=== PATIENT | male | born 1965 | race Caucasian/White ===

== ENCOUNTER → 2019-02-03 15:50 | Outpatient (CLI) | payer OTHER, SELFPAY ==
[2019-02-03 17:44] LABS: AST(SGOT) 20 U/L (15-37); Alanine Aminotransfer ALT/SGPT 37 U/L (16-61); Albumin, Serum 3.6 g/dL (3.2-5.0); Alkaline Phosphatase 106 U/L (45-117); Anion Gap 7 (5-15); BUN 16 mg/dL (7-18); BUN/Creat Ratio 19.5 RATIO (10-20); Calcium,Total 8.6 mg/dL (8.5-10.1); Chloride 103 mmol/L (98-107); Creatinine, Serum 0.82 mg/dL (0.70-1.30); EST Glomerular Filtration Rate 104 mL/min (>60); Est Glom Filt Rate - Afr Amer 126 mL/min (>60); Globulin 3.7 g/dL (2.2-4.2); Glucose 108 mg/dL (74-106); Potassium 3.8 mmol/L (3.5-5.1); Protein, Total 7.3 g/dL (6.4-8.2); Sodium Level 137 mmol/L (136-145); T4 Free Direct 0.94 ng/dL (0.76-1.46); Thyroid Stim Hormone (TSH) 1.21 uIU/mL (0.358-3.74)
[2019-02-03 17:58] LABS: Absolute Lymphocyte Count 2.29 X10^3/uL (0.83-4.51); Absolute Neutrophil Count 3.8 X10^3/uL (2.0-7.7); Basophil# 0.07 X10^3/uL; Eosinophils% 4.3 % (0-5); Hemoglobin 12.4 g/dL (13.0-16.5); Lymphocyte # 2.29 X10^3/ul (4.0); Lymphocyte % 32.8 % (19-41); Mean Corp Hgb Conc 33.5 g/dL (32-36); Mean Corpuscular Hgb 28.5 pg (27.0-32.0); Mean Corpuscular Volume 85.1 fL (80-94); Mean Platelet Vol. 10.9 fl (6.2-12.0); Monocyte# 0.51 X10^3/uL; Monocyte% 7.3 % (0-10); NRBC Flagged by Analyzer 0 % (0-5); Neutrophil % 54.3 % (47-70); Platelet Count 232 K/mm3 (150-450); RBC Distribution Width CV 13.7 % (11.6-14.6); RBC Distribution Width SD 42.4 fl (35.1-43.9); Red Blood Count 4.35 M/mm3 (4.6-6.2)
[2019-02-04 15:39] LABS: Ferritin 173 ng/mL (26-388); Iron 59 ug/dL (65-175); Iron Binding Capacity,Total 274 ug/dL (250-450); PERCENT IRON SATURATION 21.5 % (15.0-55.0)
== END ==
PROVIDERS: Family Provider Family Medicine; PCP Family Medicine; Visit Provider Family Medicine
DX: I10 Essential (primary) hypertension (principal); F41.9 Anxiety disorder, unspecified; D64.9 Anemia, unspecified
CPT/HCPCS: 36415; 80053; 82728; 83540; 83550; 84439; 84443; 85025

== ENCOUNTER 2019-03-21 06:50 | Day surgery (SDC) | payer OTHER, SELFPAY ==
[2019-02-24 08:24] VITALS: BMI 40.3
--- NOTE | 2019-02-25 08:48 | HP_ITS ---
Intake Vital Signs 02/24/19 Height 6 ft 5 in 02/24/19 Weight: 340 lb 02/24/19 BMI 40.3 02/24/19 BP 139/92 H 02/24/19 Blood Pressure Location Rt brachial Intake Visit Reasons: CHANGE IN BOWEL HABITS, DIARRHEA & ANEMIA Primary Special Educator Required: No Is patient in pain?: No Allergies No Known Allergies Allergy (Unverified 02/24/19 08:24) Medications bupropion HCl 150 mg tablet,12 hr sustained-release 150 mg PO DAILY 02/24/19 [History Confirmed 02/24/19] cetirizine 10 mg tablet 10 mg PO DAILY 02/24/19 [History Confirmed 02/24/19] lisinopril 20 mg-hydrochlorothiazide 25 mg tablet PO #30 tab 02/24/19 [History Confirmed 02/24/19] metoprolol succinate 25 mg tablet,extended release 24 hr 25 mg PO DAILY 02/24/19 [History Confirmed 02/24/19] PFSH Medical History (Updated 02/25/19 @ 08:47 by Rafat Tomas MD) Allergies (Acute) HTN (hypertension) (Chronic) Surgical History S/P appendectomy (Acute) Family History Mother Heart disease Hypertension Father Heart disease Hypertension Social History (Updated 02/25/19 @ 08:48 by Rafat Tomas MD) Smoking Status: Never smoker alcohol intake: current alcohol intake frequency: a few times a month HPI HPI HPI: MANAN MOSQUEDA, is a 53 M who presents to the office today for HPI HPI Surgical H&P: Yes HPI: MANAN MOSQUEDA, is a 53 M who presents to the office today for iron deficiency anemia. The patient notes that he has been having diarrhea. He also has acid reflux. He says the diarrhea has been happening 1-2 times per month for the last 2 or 3 months. He is never had deficiency anemia in the past. He is never had a colonoscopy or EGD. He has no family history of colon cancer. He is not on any blood thinners. ROS General General: No weight change or fatigue Cardio Cardiovascular: Yes high blood pressure; no murmur, pacemaker, heart disease, atrial fibrillation, heart attack, heart stent, palpitations, shortness of breat with exertion or chest pain Psych Psychiatric: Yes depression and anxiety Resp Respiratory: No shortness of breath, Yes sleep apnea, No cough, No COPD, Yes asthma, No emphysema, No wheezing Gastro Gastrointestinal: No abdominal pain, No nausea or vomiting, Yes diarrhea, No constipation, No blood in stool, Yes acid reflux, No hemorrhoids, No ulcers, No gallbladder problem, No black,tarry stools Jere Hematologic: No blood thinners, Yes anemia Exam Const General: cooperative Nutritional Appearance: obese Orientation: alert, oriented x3 Resp Effort & Inspection: normal respiratory effort Auscultation: clear to auscultation bilaterally Cardio Rate: regular rate Rhythm: regular rhythm Heart Sounds: no murmurs GI Inspection: non-distended Palpation: soft, nontender Assessment & Plan Problems 1. Diarrhea, unspecified type R19.7 2. Iron deficiency anemia, unspecified iron deficiency anemia type D50.9 Plan The patient is having diarrhea and iron deficiency anemia. I recommend EGD and colonoscopy. I explained endoscopy in detail to the patient. I explained the risks including but not limited to stroke or heart attack with anesthesia, perforation of the GI tract, bleeding, infection. I explained that any of these could necessitate further emergency surgery. The patient understands and all questions were answered sufficiently. The patient wishes to proceed with procedure. Rafat Tomas MD Pager: [facility] [address] [place] [address], [address] [place] [address] Office: Orders Orders: Colonoscopy Today D50.9, R19.7 EGD Today D50.9 Coding Level of Care Code Off vis,new,level 3 Diagnoses Diarrhea, unspecified type R19.7 ??Diarrhea type: unspecified type Iron deficiency anemia, unspecified iron deficiency anemia type D50.9 ??Iron deficiency anemia type: unspecified iron deficiency 02/25/19 1641 <Electronically signed by Rafat velásquez MD> Date _ Rafat Tomas MD I have re-examined the patient. There are no clinical changes since date of exam.
[2019-03-21 07:13] VITALS: BP 118/88; PULSE 67; RESP 16; TEMP 36.4; O2SAT 96; BMI 41.3
[2019-03-21] MEDS: Lactated Ringers 1,000 ML 100 ML IV (07:19)
--- NOTE | 2019-03-21 08:00 | COLBX_PTH ---
PATIENT: MANAN MOSQUEDA LOC: EN U#:[id number] AGE/SX: 53/M ROOM: RE03/21/[address]: Dr. Rafat Tomas MD : 1965 BED: DIS: 03/21/2019 SPEC #: [id number] RECD: 03/21/19 09:47 STATUS: BERNIE BILLIE #: [id number] RAMON: 03/21/19 08:[address]: Rafat Tomas DEPT: SURGICAL PATHOLOGY RECD BY: Lee Jacobs ENTERED: 03/21/19 12:06 SP TYPE: COLON BX OTHR DR: Dr. Loki Fan MD Tissues: A - Cecum, NOS B - COLON BIOPSY Procedures: Surgery Specimen Level IV HEADER OPERATION: Colonoscopy, [place] [place] PRE[place]OP DIAGNOSIS: Anemia, diarrhea TISSUE SUBMITTED: A - Cecal polyp, B - Random colon biopsies MICROSCOPIC DIAGNOSIS A. Cecal polyp, biopsy: Hyperplastic polyp. B. Colon, random biopsy: No pathologic change. AM:roma 03/24/19 MICROSCOPIC DESCRIPTION Slides are reviewed. GROSS DESCRIPTION A - Received in fixative is one container labeled with the patient's name and designated cecal polyp. The specimen consists of one irregular fragment of light lemus soft tissue that measures 0.3 x 0.2 x 0.1 cm. The specimen is totally submitted in one cassette. B - Received in fixative is one container labeled with the patient's name and designated random colon biopsy. The specimen consists of multiple irregular fragments of light lemus soft tissue that in aggregate measure 2.5 x 1 x 0.1 cm. The specimen is totally submitted in one cassette. / AM:roma 03/21/19 TC:5 CPT: 86090 x2
[2019-03-21 08:25] VITALS: BP 118/88; BP 151/80; PULSE 67; RESP 14; TEMP 36.4; O2SAT 100
[2019-03-21 08:30] VITALS: BP 118/88; BP 133/92; PULSE 65; RESP 16; O2SAT 100
[2019-03-21 08:34] VITALS: BP 118/88; BP 141/81; PULSE 64; RESP 16; O2SAT 100
[2019-03-21 08:36] VITALS: BP 118/88; BP 160/77; PULSE 65; RESP 16; TEMP 36.8; O2SAT 100
[2019-03-21 09:17] VITALS: BP 118/88
--- NOTE | 2019-03-26 10:39 | OP.COLON_ITS ---
Patient Name: Riky Santos Procedure Date: 03/21/2019 8:03 AM Date of : 1965 Age: 53 Procedure: Colonoscopy Indications: Chronic diarrhea, Iron deficiency anemia Providers: Rafat Tomas MD Referring MD: Loki Fan Medicines: Monitored Anesthesia Care Patient Profile: This is a 53 year old male. Refer to note in patient chart for documentation of history and physical. Last Colonoscopy: more than 10 years ago. Complications: No immediate complications. Estimated blood loss: Minimal. Procedure: Pre-Anesthesia Assessment: - Prior to the procedure, a History and Physical was performed, and patient medications and allergies were reviewed. The patient's tolerance of previous anesthesia was also reviewed. The risks and benefits of the procedure and the sedation options and risks were discussed with the patient. All questions were answered, and informed consent was obtained. Prior Anticoagulants: The patient has taken no previous anticoagulant or antiplatelet agents. After reviewing the risks and benefits, the patient was deemed in satisfactory condition to undergo the procedure. After I obtained informed consent, the scope was passed under direct vision. Throughout the procedure, the patient's blood pressure, pulse, and oxygen saturations were monitored continuously. The Colonoscope was introduced through the anus and advanced to the cecum, identified by appendiceal orifice and ileocecal valve. The colonoscopy was performed without difficulty. The patient tolerated the procedure well. The quality of the bowel preparation was good. Scope In: 8:05:29 AM Scope Withdrawal Time 0 hours 9 minutes 15 seconds Scope Out: 8:19:04 AM Total Procedure Duration Time 0 hours 13 minutes 35 seconds Findings: A polyp was found in the cecum. The polyp was sessile. The polyp was removed with a hot snare. Resection and retrieval were complete. The exam was otherwise without abnormality on direct and retroflexion views. Biopsies for histology were taken with a cold forceps from the entire colon for evaluation of microscopic colitis. Impression: - One polyp in the cecum, removed with a hot snare. Resected and retrieved. - The examination was otherwise normal on direct and retroflexion views. - Biopsies were taken with a cold forceps from the entire colon for evaluation of microscopic colitis. Recommendation: - Discharge patient to home. - Resume previous diet. - Continue present medications. - Await pathology results. - Repeat colonoscopy date to be determined after pending pathology results are reviewed for surveillance based on pathology results. Procedure Code(s): --- Professional --- 01702, Colonoscopy, flexible; with removal of tumor(s), polyp(s), or other lesion(s) by snare technique Diagnosis Code(s): --- Professional --- D12.0, Benign neoplasm of cecum K52.9, Noninfective gastroenteritis and colitis, unspecified D50.9, Iron deficiency anemia, unspecified CPT copyright 2017 [employer]. All rights reserved. The codes documented in this report are preliminary and upon technology education instructor review may be revised to meet current compliance requirements. Rafat Tomas MD 03/21/2019 8:25:02 AM This report has been signed electronically. Number of Addenda: 0 Note Initiated On: 03/21/2019 8:03 AM
--- NOTE | 2019-03-26 10:39 | OP.EGD_ITS ---
Patient Name: Riky Santos Procedure Date: 03/21/2019 7:10 AM Date of : 1965 Age: 53 Procedure: Upper GI endoscopy Indications: Iron deficiency anemia Providers: Rafat Tomas MD Referring MD: Loki Fan Medicines: Monitored Anesthesia Care Patient Profile: This is a 53 year old male. Refer to note in patient chart for documentation of history and physical. Complications: No immediate complications. Estimated blood loss: None. Procedure: Pre-Anesthesia Assessment: - Prior to the procedure, a History and Physical was performed, and patient medications and allergies were reviewed. The patient's tolerance of previous anesthesia was also reviewed. The risks and benefits of the procedure and the sedation options and risks were discussed with the patient. All questions were answered, and informed consent was obtained. Prior Anticoagulants: The patient has taken no previous anticoagulant or antiplatelet agents. After reviewing the risks and benefits, the patient was deemed in satisfactory condition to undergo the procedure. After obtaining informed consent, the endoscope was passed under direct vision. Throughout the procedure, the patient's blood pressure, pulse, and oxygen saturations were monitored continuously. The gastroscope was introduced through the mouth, and advanced to the second part of duodenum. The upper GI endoscopy was accomplished without difficulty. The patient tolerated the procedure well. Scope In: 8:00:10 AM Scope Out: 8:03:05 AM Total Procedure Duration Time 0 hours 2 minutes 55 seconds Findings: The esophagus was normal. The stomach was normal. The examined duodenum was normal. Impression: - Normal esophagus. - Normal stomach. - Normal examined duodenum. - No specimens collected. Recommendation: - Discharge patient to home. - Resume previous diet. - Continue present medications. Procedure Code(s): --- Professional --- 02455, Esophagogastroduodenoscopy, flexible, transoral; diagnostic, including collection of specimen(s) by brushing or washing, when performed (separate procedure) Diagnosis Code(s): --- Professional --- D50.9, Iron deficiency anemia, unspecified CPT copyright 2017 [employer]. All rights reserved. The codes documented in this report are preliminary and upon icd 9 coder review may be revised to meet current compliance requirements. Rafat Tomas MD 03/21/2019 8:22:58 AM This report has been signed electronically. Number of Addenda: 0 Note Initiated On: 03/21/2019 7:10 AM
== END 2019-03-21 09:17 | disposition home or self-care (01) ==
LOC: EN 06:52 → AC 06:54
PROVIDERS: Family Provider Family Medicine; PCP Family Medicine; Referring Provider Family Medicine; Visit Provider Surgery
PROC: 0DJD8ZZ Inspection of Lower Intestinal Tract, Via Natural or Artificial Opening Endoscopic (ICD-10-PCS; CPT 45378; principal; 2019-03-21 07:55)
DX: D12.0 Benign neoplasm of cecum (principal); R19.7 Diarrhea, unspecified; D50.9 Iron deficiency anemia, unspecified; I10 Essential (primary) hypertension; J45.909 Unspecified asthma, uncomplicated; K21.9 Gastro-esophageal reflux disease without esophagitis
CPT/HCPCS: 43235; 45385; 88305; J7120

== ENCOUNTER → 2021-12-23 | Outpatient (CLI) | payer OTHER, SELFPAY ==
[2021-12-23 18:09] LABS: Absolute Lymphocyte Count 2.55 X10^3/uL (0.83-4.51); Absolute Neutrophil Count 4.8 X10^3/uL (2.0-7.7); Basophil# 0.11 X10^3/uL; Basophil% 1.3 % (0-1); Eosinophil# 0.44 X10^3/uL; Eosinophils% 5.2 % (0-5); Hematocrit 36.5 % (40-54); Lymphocyte # 2.55 X10^3/ul (0.83-4.51); Mean Corp Hgb Conc 32.9 g/dL (32-36); Mean Corpuscular Hgb 28.8 pg (27.0-32.0); Mean Corpuscular Volume 87.5 fL (80-94); Mean Platelet Vol. 10.8 fl (6.2-12.0); Monocyte# 0.55 X10^3/uL; Monocyte% 6.5 % (0-10); NRBC Flagged by Analyzer 0 % (0-5); Neutrophil # 4.82 X10^3/uL (2.7-7.7); Neutrophil % 56.8 % (47-70); Platelet Count 270 K/mm3 (150-450); RBC Distribution Width CV 13.7 % (11.6-14.6); RBC Distribution Width SD 43.9 fl (35.1-43.9); Red Blood Count 4.17 M/mm3 (4.6-6.2); White Blood Count 8.5 K/mm3 (4.4-11.0)
[2021-12-23 18:26] LABS: ALB/GLOB Ratio 0.9 RATIO (0.9-2.4); AST(SGOT) 24 U/L (15-37); Alanine Aminotransfer ALT/SGPT 39 U/L (16-61); Albumin, Serum 3.5 g/dL (3.2-5.0); Alkaline Phosphatase 91 U/L (45-117); Anion Gap 7 (5-15); BUN 19 mg/dL (7-18); BUN/Creat Ratio 11.4 RATIO (10-20); Calcium,Total 8.6 mg/dL (8.5-10.1); Chloride 104 mmol/L (98-107); Creatinine, Serum 1.67 mg/dL (0.70-1.30); EST Glomerular Filtration Rate 46 mL/min (>60); Est Glom Filt Rate - Afr Amer 55 mL/min (>60); Globulin 3.9 g/dL (2.2-4.2); Glucose 115 mg/dL (74-106); Protein, Total 7.4 g/dL (6.4-8.2); Sodium Level 138 mmol/L (136-145)
== END | disposition home or self-care (01) ==
LOC: BFHLAB 15:43
PROVIDERS: PCP Family Medicine; Visit Provider Family Medicine
DX: I10 Essential (primary) hypertension (principal); D64.9 Anemia, unspecified; F41.9 Anxiety disorder, unspecified; R25.1 Tremor, unspecified
CPT/HCPCS: 36415; 80053; 84443; 85025

== ENCOUNTER → 2021-12-28 | Outpatient (CLI) | payer OTHER, SELFPAY | END | disposition home or self-care (01) | LOC: LAB.FUTURE 15:41 | PROVIDERS: PCP Family Medicine; Visit Provider Family Medicine | DX: I10 Essential (primary) hypertension (principal) ==

== ENCOUNTER → 2023-03-19 | Outpatient (CLI) | payer OTHER, SELFPAY ==
[2023-03-19 17:38] LABS: Absolute Lymphocyte Count 2.27 X10^3/uL (0.83-4.51); Absolute Neutrophil Count 3.5 X10^3/uL (2.0-7.7); Basophil# 0.09 X10^3/uL; Basophil% 1.3 % (0-1); Eosinophils% 8.8 % (0-5); Hematocrit 37.3 % (40-54); Hemoglobin 12.3 g/dL (13.0-16.5); Lymphocyte # 2.27 X10^3/ul (0.83-4.51); Lymphocyte % 33.1 % (19-41); Mean Corpuscular Hgb 28.5 pg (27.0-32.0); Mean Corpuscular Volume 86.5 fL (80-94); Mean Platelet Vol. 10.4 fl (6.2-12.0); Monocyte# 0.42 X10^3/uL; Monocyte% 6.1 % (0-10); NRBC Flagged by Analyzer 0 % (0-5); Neutrophil # 3.45 X10^3/uL (2.7-7.7); Neutrophil % 50.4 % (47-70); Platelet Count 257 K/mm3 (150-450); RBC Distribution Width CV 14.1 % (11.6-14.6); RBC Distribution Width SD 44.9 fl (35.1-43.9); Red Blood Count 4.31 M/mm3 (4.6-6.2); White Blood Count 6.9 K/mm3 (4.4-11.0)
[2023-03-19 17:57] LABS: Hemoglobin A1c 5.6 % (3.8-5.6)
[2023-03-19 18:15] LABS: ALB/GLOB Ratio 0.9 RATIO (0.9-2.4); AST(SGOT) 22 U/L (15-37); Alanine Aminotransfer ALT/SGPT 32 U/L (16-61); Albumin, Serum 3.5 g/dL (3.2-5.0); Alkaline Phosphatase 102 U/L (45-117); Anion Gap 6 (5-15); BUN 17 mg/dL (7-18); BUN/Creat Ratio 16.3 RATIO (10-20); Calcium,Total 8.4 mg/dL (8.5-10.1); Chloride 103 mmol/L (98-107); Cholesterol 215 mg/dL (200); Creatinine, Serum 1.04 mg/dL (0.70-1.30); EST Glomerular Filtration Rate 78 mL/min (>60); Est Glom Filt Rate - Afr Amer 95 mL/min (>60); Globulin 3.9 g/dL (2.2-4.2); Glucose 114 mg/dL (74-106); High Density Lipoprotein 39 mg/dL; PSA,Total - Annual Screen 1.13 ng/mL (0.00-4.00); Protein, Total 7.4 g/dL (6.4-8.2); Sodium Level 137 mmol/L (136-145); Triglycerides 178 mg/dL; Very Low Density Lipoprotein 36 mg/dL (5-40)
== END | disposition home or self-care (01) ==
LOC: BFHLAB 15:48
PROVIDERS: PCP Family Medicine; Visit Provider Family Medicine
DX: Z00.00 Encounter for general adult medical examination without abnormal findings (principal); Z12.5 Encounter for screening for malignant neoplasm of prostate
CPT/HCPCS: 36415; 80053; 80061; 83036; 84153; 85025; G0103

== ENCOUNTER → 2024-04-11 | Outpatient (CLI) | payer OTHER, SELFPAY ==
--- NOTE | 2024-04-11 09:05 | RAD_ITS ---
EXAM: UPPER GI DUAL CONTRAST CLINICAL HISTORY: [id number]. Dyspepsia. COMPARISON: None. TECHNIQUE: The patient ingested barium. Multiple images of the esophagus, stomach and duodenum were obtained. FINDINGS: The esophagus is unremarkable. No evidence of obstruction. No mass lesion is seen. No evidence of gastroesophageal reflux. The stomach and duodenum are unremarkable. No evidence of ulceration. There is evidence of a diverticulum arising at the junction of the 2nd and 3rd portions of the duodenum. RAD/Upper GI Dual Contrast IMPRESSION: The esophagus and stomach are unremarkable. Incidental note is made of a diverticulum at the junction of the 2nd and 3rd po rtions of the duodenum. Reading Location: [facility]
== END | disposition home or self-care (01) ==
LOC: RAD 08:43
PROVIDERS: PCP Family Medicine; Referring Provider Nurse Practitioner Acute Care; Visit Provider Nurse Practitioner Acute Care
DX: R06.02 Shortness of breath (principal); R14.0 Abdominal distension (gaseous); R10.13 Epigastric pain
CPT/HCPCS: 74246

== ENCOUNTER → 2024-04-23 | Outpatient (CLI) | payer OTHER, SELFPAY ==
[2024-04-28 05:06] LABS: Beef <0.10 kU/L (Class 0); Chocolate <0.10 kU/L (Class 0); Codfish <0.10 kU/L (Class 0); Corn <0.10 kU/L (Class 0); Egg, Whole <0.10 kU/L (Class 0); Milk (Cow) <0.10 kU/L (Class 0); Mussels <0.10 kU/L (Class 0); Peanut <0.10 kU/L (Class 0); Pork <0.10 kU/L (Class 0); Salmon <0.10 kU/L (Class 0); Shrimp <0.10 kU/L (Class 0); Soybean <0.10 kU/L (Class 0); Tuna <0.10 kU/L (Class 0); Wheat <0.10 kU/L (Class 0)
== END | disposition home or self-care (01) ==
LOC: LAB 16:31
PROVIDERS: PCP Family Medicine; Referring Provider Nurse Practitioner Acute Care; Visit Provider Nurse Practitioner Acute Care
DX: K63.8219 Small intestinal bacterial overgrowth, unspecified (principal); R14.2 Eructation; R10.13 Epigastric pain; R63.4 Abnormal weight loss
CPT/HCPCS: 36415; 86003; 86005